=== PATIENT | female | born 1980 | race African-American/Black ===

== ENCOUNTER 2018-10-29 10:54 | Emergency (ER) | payer MEDICAID ==
[~2018-10-29] VITALS: Ht 165.1 cm; Wt 118.0 kg
[2018-10-29 11:24] VITALS: BP 128/70
[2018-10-29] MEDS ORDERED: DIPHENHYDRAMINE 50MG/ML VIAL IV ONE (11:30)
[2018-10-29] MEDS ORDERED: METHYLPREDNISOLONE SOD SUCC 125 MG/2 ML VIAL IV ONE (11:30)
[2018-10-29] MEDS ORDERED: FAMOTIDINE 20MG/2ML VIAL IV ONE (11:30)
== END 2018-10-29 12:51 | disposition home or self-care (01) ==
LOC: ER 10:54
DX: T78.40XA Allergy, unspecified, initial encounter (principal); X58.XXXA Exposure to other specified factors, initial encounter
CPT/HCPCS: 96374; 96375; 99283; J1200; J2930; J3490